=== PATIENT | female | born 1990 | race Caucasian/White ===

== ENCOUNTER 2018-07-14 01:42 | Inpatient (IN) | payer OTHER ==
[2018-07-14 02:18] VITALS: BMI 46.2
[2018-07-14 02:48] LABS: Amnisure Test No Membranes Rupture (No Rupture)
[2018-07-14 02:49] LABS: Amnisure Internal Control QC ACCEPTABLE (ACCEPTABLE)
--- NOTE | 2018-07-14 03:00 | PDOC.LDHP ---
Labor and Delivery H&P Chief complaint: loss of fluid HPI: Patient of Dr Walsh Locatio: Triage Time: 0300 HPI: 27 yo G1 at 37 weeks 5 days with posible LOF at 0030. Good FM, no fever, no VB. HX Maternal tachycardia on metoprolol. Review of systems: complete ROS performed and as per HPI Current gestational age (weeks): 37 (5 days) Dating criteria: last menstrual period Grav: 1 Para: 0 Current complications: other (maternal tachycardia) Abnormal US findings: No Current medications: pre-varun vitamins, other (metoprolol) Previous surgical history: none Allergies/Adverse Reactions: Allergies Allergy/AdvReac Type Severity Reaction Status Date / Time No Known Drug Allergies Allergy Verified 07/14/18 02:08 - Physical Exam Vital signs reviewed and normal: yes (137/81 99 18) General: NAD Heart: RRR Lungs: CTAB Abdomen: gravid Extremeties: no edema FHT: category 1 - Assessment early term with complaint of possible LOF. Amnisure negative - Plan Plan: observation in L&D (Sterile spec to be performed by me now; negative. FHTs cat 1)
--- NOTE | 2018-07-14 03:23 | PDOC.EVN ---
Event Note - Event Note Event Note: Sterile Spec exam negative. Valsalva negative. This with neg rules out ROM. Yeast in vagina noted...will order Diflucan X 1 oral BP was 145/89 while I was talking with her...I will do BP obs and order labs. PIH information given to her...obs for BP for 3 hours. CX closed/thich/high and posterior. Cat 1 strip
--- NOTE | 2018-07-14 03:35 | PDOC.EVN ---
Event Note - Event Note Event Note: Brother with malignant hypertermia with tonsilectomy...will relay to anesthesia if labors.
[2018-07-14] MEDS ORDERED: Fluconazole 100 MG TAB PO SCH (03:45)
[2018-07-14 04:03] LABS: Mean Corpuscular HGB CONC 35.2 g/dL (32.0-36.0); Mean Corpuscular Hemoglobin 29.8 pg (27.0-31.0); Mean Corpuscular Volume 84.5 fL (78.0-98.0); Mean Platelet Volume 8.9 fL (7.4-10.4); Platelet Count 224 thou/uL (130-400); RBC Distribution Width 12.2 % (11.5-14.5); Red Blood Cell (RBC) Count 4.02 mill/uL (4.20-5.40); White Blood Cell (WBC) Count 11.3 thou/uL (4.8-10.8)
[2018-07-14 04:24] LABS: ALT (SGPT) 17 U/L (8-55); AST (SGOT) 14 U/L (5-34); Albumin 3.1 g/dL (3.5-5.0); Alkaline Phosphatase 152 U/L (40-150); Anion Gap 15 mmol/L (10-20); BUN (Urea Nitrogen) 10 mg/dL (7.0-18.7); Bilirubin, Total 0.2 mg/dL (0.2-1.2); Calc. Creatinine Clearance 255 mL/min (70-130); Calcium 9.5 mg/dL (7.8-10.44); Carbon Dioxide 19 mmol/L (22-29); Chloride 109 mmol/L (98-107); Estimated GFR-MDRD Greater than 90; Globulin 2.9 g/dL (2.4-3.5); Glucose 98 mg/dL (70-105); Potassium 4.1 mmol/L (3.5-5.1); Sodium 139 mmol/L (136-145)
--- NOTE | 2018-07-14 04:36 | PDOC.EVN ---
Event Note - Event Note Event Note: cbc and cmp ok, urine protein pending
[2018-07-14] MEDS ORDERED: Ondansetron ODT 4 MG TAB PO PRN (04:41)
--- NOTE | 2018-07-14 05:34 | PDOC.EVN ---
Event Note - Event Note Event Note: protein neg
--- NOTE | 2018-07-14 05:39 | PDOC.EVN ---
Event Note - Event Note Event Note: Patient with no PIH sxs...BPs borderline. States she was to have a sono this Thursday...we will order here.
[2018-07-14] MEDS ORDERED: NS / Oxytocin 40 units/1000ml 1,000 ML IV PRN (07:11)
[2018-07-14] MEDS ORDERED: Ibuprofen 800 MG TAB PO PRN (07:11)
[2018-07-14] MEDS ORDERED: HYDROcodone/Acetaminophen 5/325 mg Tablet PO PRN ×2 (07:11)
[2018-07-14] MEDS ORDERED: Lidocaine 1% (PF) 30 ML VIAL SC PRN (07:11)
[2018-07-14] MEDS ORDERED: Promethazine HCl 25 MG/ML VIAL IM PRN (07:11)
--- NOTE | 2018-07-14 07:11 | PDOC.EVN ---
Event Note - Event Note Event Note: Sono with EFW 4102grams, JESUS 14, ceplaic, post placenta. Due to persiustent borderline BOPs at 140s..we will keep for cytotec
[2018-07-14] MEDS ORDERED: Misoprostol 100 MCG TAB VAG SCH (07:15)
[2018-07-14] MEDS: Lactated Ringer's 1,000 ML IV SCH ×3 (08:15→23:50)
[2018-07-14 08:26] LABS: Syphilis Antibody Nonreactive (Nonreactive); Syphilis Antibody Index 0.05 S/CO (<1.00 Non-Reactive)
[2018-07-14 08:27] LABS: HIV (1/2) Antibody/Antigen Non-Reactive (NonReactive); HIV 1/2 INDEX 0.09 S/CO (<1.00); Hep B Surf Ag Non-Reactive S/CO (NonReactive)
--- NOTE | 2018-07-14 08:28 | PDOC.EVN ---
Event Note - Event Note Event Note: Received report from Dr. Bear. of Dr. Walsh here with elevated BPs, normal labs, unfavorable cervix and EFW of 4100 gms. Dispo for delivery. Cytotec ordered.
--- NOTE | 2018-07-14 09:32 | ULT ---
EXAM: LIMITED OB ULTRASOUND: History: 27-year-old female with induced hypertension. Exam was performed to particularly evaluate amniotic fluid as well as position. FINDINGS: Single viable intrauterine fetus is noted in cephalic presentation. The placenta is posterior. heart rate of 169 beats/minute. Amniotic fluid index 14.3 cm. anatomy was not addressed at the time of this study. BDP 10.2 cm 42 weeks 0 days HC 35.1 cm 40 weeks 6 days AC 36.2 cm 40 weeks 1 day FL 7.9 cm 40 weeks 1 day IMPRESSION: Single viable intrauterine fetus at 40 weeks 4 days gestation with an EDC of 12-22-18. Estimated feta l weight 4102 grams. IMPRESSION: 40 weeks 4 day gestation with an EDC of 12-22-18. Estimated weight 4102 grams. Cephalic present ation. Amniotic fluid index of 14.3 cm. POS: [facility]
[2018-07-14] MEDS: Misoprostol 100 MCG TAB VAG SCH ×4 (09:48→18:13)
[2018-07-14] MEDS ORDERED: Bupivacaine/Epinephrine 0.25% 30 ML VIAL ONE (15:00)
[2018-07-14] MEDS ORDERED: Lidocaine 2% MPF 10 ML AMP (For Epidural Use) ONE (15:00)
--- NOTE | 2018-07-14 16:05 | PDOC.EVN ---
Event Note - Event Note Event Note: Comfortable. 2 doses of vaginal Cytotec given so far. SVE by me now -/-3, vtx high. Fhts stable. UCs q 2-3 seen now. Will defer dose for now and observe.
[2018-07-14] MEDS ORDERED: NS w/ Oxytocin 10 units 500 ML ONE (22:22)
--- NOTE | 2018-07-14 22:43 | PDOC.EVN ---
Event Note - Event Note Event Note: 3 doses of Cytotec given. SROM at 1940, clear. SVE now /-2, vtx. FHTs stable. UCs irregular. Plan: Start pitocin.
[2018-07-15] MEDS: Butorphanol Tartrate 1 MG/ML VIAL SLOW IVP PRN ×2 (00:15→03:20)
[2018-07-15] MEDS: Misoprostol 100 MCG TAB VAG SCH ×4 (00:59→13:44)
[2018-07-15] MEDS ORDERED: NS w/ Oxytocin 10 units 500 ML IV SCH (01:15)
--- NOTE | 2018-07-15 03:50 | PDOC.EVN ---
Event Note - Event Note Event Note: SVE at 0230 was 4/90/-2. FHTs stable, no decels. UCs q 2-3 mins. Pit at 10 mu/min. Cont. pitocin induction.
[2018-07-15] MEDS: Lactated Ringer's 1,000 ML IV SCH ×4 (08:29→19:10)
[2018-07-15] MEDS ORDERED: Fentanyl 4 mcg/Bup 0.1% Cadd 100 ML ONE ×2 (09:02→18:13)
[2018-07-15] MEDS ORDERED: Naloxone HCl 0.4 mg/ml Vial IVP PRN ×4 (09:48→22:20)
[2018-07-15] MEDS ORDERED: Lactated Ringer's 500 ML IV PRN (09:48)
[2018-07-15] MEDS ORDERED: Eucerin (Mineral Oil/Petrolatum,White) 30 gm Jar TOP PRN ×2 (09:48→22:20)
[2018-07-15] MEDS ORDERED: Promethazine HCl 25 MG/ML VIAL IM PRN ×2 (09:48→22:20)
[2018-07-15] MEDS ORDERED: Acetaminophen 325 MG TAB PO PRN (09:48)
[2018-07-15] MEDS ORDERED: Ondansetron PF 4 MG/2 ML Vial IVP PRN ×2 (09:48→22:20)
[2018-07-15] MEDS ORDERED: ePHEDrine/0.9% NaCl/PF SYRINGE 50 mg/10 ml SLOW IVP PRN (09:48)
[2018-07-15] MEDS ORDERED: diphenhydrAMINE 50 MG/ML VIAL IVP PRN ×2 (09:48→22:20)
[2018-07-15] MEDS ORDERED: Communication Order-Pharmacy FS SCH ×2 (10:00→22:30)
[2018-07-15] MEDS ORDERED: Fentanyl 4 mcg/Bupivacaine 0.1% Cassette 100 ML EPIDURAL SCH (10:00)
[2018-07-15] MEDS: Dextrose 5%-Lactated Ringers 1,000 ML IV SCH (13:45)
[2018-07-15] MEDS ORDERED: Bicitra 30 ML UDCUP ONE (18:40)
[2018-07-15] MEDS ORDERED: CEFAZOLIN 2 GM/50 ML BAG ONE (18:40)
[2018-07-15] MEDS ORDERED: Bicitra 30 ML UDCUP PO SCH (19:15)
[2018-07-15] MEDS ORDERED: CEFAZOLIN 2 GM/50 ML BAG IVPB SCH (19:15)
[2018-07-15] MEDS ORDERED: Ketorolac Tromethamine 30 MG/ML VIAL ONE (19:29)
[2018-07-15] MEDS ORDERED: Oxytocin 10 UNITS/ML VIAL ONE (19:29)
[2018-07-15] MEDS ORDERED: Ondansetron PF 4 MG/2 ML Vial ONE (19:29)
[2018-07-15] MEDS ORDERED: ePHEDrine/0.9% NaCl/PF SYRINGE 50 mg/10 ml ONE (19:29)
[2018-07-15] MEDS ORDERED: PHENYLEPHRINE-NS 100 MCG/ML 10 ML SYRINGE ONE (19:29)
[2018-07-15] MEDS ORDERED: Fentanyl 100 MCG/2 ML VIAL ONE ×2 (19:38→20:35)
[2018-07-15] MEDS ORDERED: Lidocaine 2% MPF 10 ML AMP (For Epidural Use) ONE (20:00)
--- NOTE | 2018-07-15 20:34 | PRG ---
DATE OF SERVICE: 07/15/2018 INTRAPARTUM PROGRESS NOTE SUBJECTIVE: The patient is a 27-year-old, G1, P0 female with an intrauterine at 37 weeks and 6 days, who was admitted yesterday for PIH. Over the course of her induction, the patient has had 3 doses of Cytotec and was placed on Pitocin this morning. There has been some concern that the patient has an LGA baby. Over the course of the days, the patient has had Pitocin with periods of adequate contractions. Earlier in the day, there was some concern about the patient having increasing baseline in her tocometer as we were unable to clearly identify where it was coming from. Decision was made to turn off her Pitocin to see the results of the baseline did drop a small amount, that does not appear to be the result of hypertonic uterus. Pitocin was restarted until uterine contractions became adequate again, however, over the course of the entire day, the patient has not had any change in her cervix or in her station. Cervix remains to be 3 to 4 cm as of yesterday evening, 80% to 90% effaced with -2 station. We did share these findings with the patient, Ms. Carey and concerns that the patient has a baby too large to pass at the bony pelvis. We gave her the option of continuing forward for a couple of hours to see if persistent out of contractions to make any change or to proceed with given the prolonged state of induction at this point. After discussing with her family, the patient has decided to proceed with . The patient has a family history of malignant hyperthermia, i.e. her brother and had concerns about the risk of general anesthesia. The patient does have an adequate epidural anesthesia has been made aware of the family history, and precautions have been made. Blood pressures throughout the day have been primarily in the normal to mild range. She has had some isolated severe pressure at 160/90. Most recent vital signs; blood pressure is 122/79, heart rate of 102, respiratory rate of 18, and temperature 99.1. Fetus has remained category 1 tracing throughout the day with a baseline in the 130s with moderate long-term variability, positive 15 x 15 accelerations, no decelerations. Given the prolonged course of labor and long use of Pitocin, we have rested the patient for several hours to help get the uterus time to recuperate and hopefully minimize the chance of atony and excessive bleeding. As anesthesia has an opening to proceed forward for , we will be proceeding at this time. Job ID: [id number]
[2018-07-15] MEDS ORDERED: PROPOFOL 20 ML ONE ×2 (20:35→20:51)
[2018-07-15] MEDS ORDERED: Morphine PF 1 MG/ML SYR ONE (21:26)
--- NOTE | 2018-07-15 21:47 | PDOC.OPDEL ---
OB Operative/Delivery Note Delivery Dr/Surgeon: Mona Mendes-[id number] Pre-Delivery Diagnosis: arrest of dilation Procedure/Post Delivery Dx: primary low transverse CS Weeks gestation: 37 (6 days) Anesthesia: epidural - Findings A Sex: male - 1 min: 7 - 5 min: 9 - Additional Findings/Plan Placenta delivered: manual removal Compilations/Other Findings: Procedure: Primary low transverse caesarean section Pre-Op Diagnosis: 1. Term Intrauterine 2. Arrest of Labor 3. Elevated BP Post-Op Diagnosis: 1. Term Intrauterine , Delivered 2. Same as above. Anesthesia: Epidural Indication: The patients is a 27 yo female @ 37.6 wks gestation who presents for primary due to arrest of labor. Procedure: After risks, benefits and alternatives were explained to the patient she gave informed consent. Pre-op antibiotics included Cefazolin 2g IV. Pt already had epidural anesthesia initiated. Pt was taken back to to the operating room. She was then placed in the supine position with a left lateral tilt. Patient was then prepped and dressed in the usual fashion. A Pfannenstiel incision was made with a scalpel and bovie down to the fascia. Bleeding was stopped with bovie cautery. The fascia was then sharply nicked. The fascial cut was then extended bilaterally with curved Hernadez scissors. The superior edge of the dissected fascia was then elevated with claudia clamps and the rectus muscles were sharply and bluntly dissected away. The inferior edge of the dissected fascia was then elevated and rectus muscles were again sharply and bluntly dissected away. The peritoneum was then entered using a hemastat and making small meño with metzenbaum scissors. The recti were then divided digitally and retracted manually. Small cuts were made to the rectus muscles bilaterally horizontally with curved hernadez scissors to help retract muscle and peritoneum from view of uterus. An adalberto O-retractor was then inserted. A low transverse score was then made with a scalpel and uterus was entered in midline. Clear fluid was noted. The hysterotomy was then extended manually and with bandage scissors. The infant was noted to be vertex and was easily delivered with fundal pressure. Mouth and nares were bulb suctioned. Cord was clamped and cut after 1 min of delay. Infant was then handed to waiting nurse. Cord blood was obtained. Placenta was then manually extracted and was noted to be intact with 3 vessel cord. The endometrium was then curretted with a dry lap. The uterus was then closed with a running locking 1-Monocryl suture followed by a running non-locking 1-monocryl imbricating suture. The uterus was irrigated and found to be free of clots. Hemostasis was noted. The Adalberto-O retractor was then removed and again hemostasis was noted along the hystertotomy. The peritoneum was then closed with a running non-locking 2- chromic suture. The fascia was then closed with a running non-locking 0- Vicryl suture. The subcutaneous layer was irrigated and again hemostasis was noted. The subcutaneous layer was then closed with 3 interupted 3-chromic suture. The skin was then approximated with gerardo. Was dressed with silvercell and pressure dressing. All counts were correct. Pt tolerated the procedure well and was taken to the recovery room in stable condition. QBL: 985 ml Complications: None Specimens: Cord blood sent to lab for blood type Findings: Nomal Male infant with apgars of 7,9. Grossly normal placenta with 3 vessel cord discarded. Drains: Kelley to gravity draining clear urine. Post delivery plan: recovery in LICU
[2018-07-15] MEDS ORDERED: Meperidine HCl/PF 25 MG/ML VIAL ONE (22:11)
[2018-07-15] MEDS ORDERED: Promethazine HCl 25 MG SUPP PR PRN (22:20)
[2018-07-15] MEDS ORDERED: Naloxone HCl 0.4 mg/ml Vial IV PRN (22:20)
[2018-07-15] MEDS ORDERED: HYDROmorphone 2 MG/ML VIAL SLOW IVP PRN (22:20)
[2018-07-15] MEDS ORDERED: Meperidine HCl/PF 25 MG/ML VIAL SLOW IVP PRN (22:20)
[2018-07-15] MEDS ORDERED: Ketorolac Tromethamine 30 MG/ML VIAL IVP PRN (22:20)
[2018-07-15] MEDS ORDERED: Ondansetron HCl/PF 4 MG/2 ML Vial IVP PRN (22:20)
[2018-07-15] MEDS ORDERED: L&D-Morphine 4 MG/ML VIAL SLOW IVP PRN (22:20)
[2018-07-15] MEDS ORDERED: Ketorolac Tromethamine 30 MG/ML VIAL IVP SCH (22:30)
[2018-07-15] MEDS ORDERED: Morphine 4 MG/ML VIAL ONE (23:39)
[2018-07-16] MEDS ORDERED: Methylergonovine 0.2 MG TAB PO PRN (00:59)
[2018-07-16] MEDS ORDERED: diphenhydrAMINE 25 MG CAP PO PRN (00:59)
[2018-07-16] MEDS ORDERED: Methylergonovine 0.2 MG/ML VIAL IM PRN (00:59)
[2018-07-16] MEDS ORDERED: Lanolin Ointment 7 GM TUBE TOP PRN (00:59)
[2018-07-16] MEDS ORDERED: Adacel (T-DAP) 0.5 ML SYRINGE IM ONE (00:59)
[2018-07-16] MEDS ORDERED: Misoprostol 200 MCG TAB PR PRN (00:59)
--- NOTE | 2018-07-16 07:09 | PDOC.PP ---
Post Progress Note Post Day #: 1 Subjective: This is a 27 yo female who delivered a TAGA M via Primary @ 37.6 weeks. Pt reports doing well. Pt has gotten up and walked to the bathroom. Reports getting a little dizzy. Denies any headache or vision changes. Pt reports drinking fluids, has not taken any solid food. Pt denies any fever or chills. Denies any chest pain or SOB. Reports pain being very manageable at this time. Denies any n/v/d/c. Has not passed gas yet. Pt reports minimal bleeding this morning. No acute events overnight. No other concerns at this time. PO intake tolerated: yes Flatus: no Ambulation: yes Vital Signs (12 hours) Temp Pulse Resp BP Pulse Ox 07/16/18 03:45 98.5 F 95 20 132/79 95 07/16/18 02:45 98.1 F 109 H 18 126/75 98 07/16/18 01:45 98.1 F 94 18 128/69 97 Weight Weight 118.388 kg - Physical Examination General: NAD Cardiovascular: no m/r/g, RRR Respiratory: clear to auscultation bilaterally, non-labored breathing Abdominal: + bowel sounds, lochia (Reports light at this time), no distention, appropriately TTP Fundus firm & at: Umbilicus Extremities: negative homans (B) Deviation from normal: Has trace edema bilaterally Skin: CS incision dry & intact, no rash Deviation from normal: No bruising or redness. No sign of drainage. Neurological: no gross focal deficits Psychiatric: A&Ox3, normal affect Result Diagrams: 07/16/18 09:13 07/14/18 03:55 Additional Labs: Post Labs Blood Type A POSITIVE 07/14/18 03:55 Hep Bs Antigen Non-Reactive S/CO (NonReactive) 07/14/18 03:55 (1) Status: Resolved Qualifiers: Weeks of gestation: 37 weeks Qualified Code(s): Z3A.37 - 37 weeks gestation of - Assessment/Plan 27 yo delivered via primary LTCS on 07/15/18 @ 20:42. -Post Op Day 1 -Ketorolac IV and Tylenol for pain at this time. Will adjust if needed. Pt reports good control at this time. -Hgb Pending this AM, on PNV at this time. -Continue to advance diet as tolerated -- Site Worker consulted Elevated BP -Pt has had some elevated BP during admission. -BP stable overnight. Will continue to monitor. Will tx if needed Addendum - Attending - Attending Attestation Date/Time: 07/19/182054 I personally evaluated the patient and discussed the management with I agree with the History, Examination, Assessment and Plan documented above with any addition or exceptions noted below.
[2018-07-16] MEDS: Prenatal Vitamin 1 TAB PO SCH (09:04)
[2018-07-16] MEDS: Simethicone Chewable 80 MG TAB PO PRN ×3 (09:04→23:38)
[2018-07-16 09:29] LABS: Hemoglobin 10.3 g/dL (12.0-16.0); Mean Corpuscular HGB CONC 34.5 g/dL (32.0-36.0); Mean Corpuscular Hemoglobin 29.6 pg (27.0-31.0); Mean Corpuscular Volume 85.6 fL (78.0-98.0); Mean Platelet Volume 8.8 fL (7.4-10.4); Platelet Count 170 thou/uL (130-400); RBC Distribution Width 12.1 % (11.5-14.5); Red Blood Cell (RBC) Count 3.47 mill/uL (4.20-5.40); White Blood Cell (WBC) Count 11.6 thou/uL (4.8-10.8)
[2018-07-16] MEDS ORDERED: Acetaminophen 500 MG TAB PO SCH (09:30)
[2018-07-16] MEDS: Ibuprofen 800 MG TAB PO SCH ×2 (13:42→23:38)
[2018-07-16] MEDS ORDERED: HYDROcodone/Acetaminophen 5/325 mg Tablet PO PRN (17:08)
[2018-07-16] MEDS: HYDROcodone/Acetaminophen 5/325 mg Tablet PO PRN ×2 (17:13→21:17)
[2018-07-16] MEDS ORDERED: Furosemide 20 MG TAB PO SCH (21:15)
--- NOTE | 2018-07-16 21:34 | PDOC.PP ---
Post Progress Note Post Day #: 1 Subjective: Doing well, ambulated today...states feet still swollen. PO intake tolerated: yes Flatus: yes Ambulation: yes Vital Signs (12 hours) Temp Pulse Resp BP BP Pulse Ox 07/16/18 17:05 98.4 F 113 H 16 140/75 97 07/16/18 11:49 98.1 F 88 20 124/64 Weight Weight 261 lb Last BP this evening was 140/75...others were normal; afebrile - Physical Examination Cardiovascular: no m/r/g Respiratory: clear to auscultation bilaterally Abdominal: + bowel sounds, lochia, no distention, appropriately TTP Extremities: negative homans (B) Skin: CS incision dry & intact (gerardo in use) Neurological: no gross focal deficits Psychiatric: A&Ox3, normal affect Result Diagrams: 07/16/18 09:13 07/14/18 03:55 Additional Labs: Post Labs Blood Type A POSITIVE 07/14/18 03:55 Hep Bs Antigen Non-Reactive S/CO (NonReactive) 07/14/18 03:55 (1) delivery delivered Code(s): O82 - ENCOUNTER FOR DELIVERY WITHOUT INDICATION Status: Acute (2) PIH ( induced hypertension) Code(s): O13.9 - GESTATIONAL HTN W/O SIGNIFICANT PROTEINURIA, UNSP TRIMESTER Status: Acute - Assessment/Plan S/P Primary CS on 07/15/18 doing well. CS was for FTP..baby was over 8#. She is . I ordered lasix 10mg po X 1 now to help with her pedal edema (2+) . No PIH sxs. I also emcouraged ambulation. We will keep and follow BPs until POD3 which will bw 07/18/18.
[2018-07-16] MEDS ORDERED: Ibuprofen 800 MG TAB PO SCH (22:00)
[2018-07-17] MEDS: HYDROcodone/Acetaminophen 5/325 mg Tablet PO PRN ×5 (02:35→21:04)
--- NOTE | 2018-07-17 05:38 | PDOC.PP ---
Post Progress Note Post Day #: 2 Subjective: Doing well, receieved lasix last PM for swollen feet PO intake tolerated: yes Flatus: yes Ambulation: yes Vital Signs (12 hours) Temp Pulse Resp BP Pulse Ox 07/16/18 20:00 98.4 F 101 H 18 132/82 99 Weight Weight 261 lb - Physical Examination General: NAD Cardiovascular: no m/r/g Respiratory: clear to auscultation bilaterally Abdominal: + bowel sounds Extremities: negative homans (B) Skin: CS incision dry & intact (gerardo) Neurological: no gross focal deficits Psychiatric: A&Ox3, normal affect Result Diagrams: 07/16/18 09:13 07/14/18 03:55 Additional Labs: Post Labs Blood Type A POSITIVE 07/14/18 03:55 Hep Bs Antigen Non-Reactive S/CO (NonReactive) 07/14/18 03:55 (1) delivery delivered Code(s): O82 - ENCOUNTER FOR DELIVERY WITHOUT INDICATION Status: Acute (2) PIH ( induced hypertension) Code(s): O13.9 - GESTATIONAL HTN W/O SIGNIFICANT PROTEINURIA, UNSP TRIMESTER Status: Acute - Assessment/Plan Doing well on POD 2: We will keep today and follow temps as labored and then had intrapartum CS. BPs ok with one systolic BP last evening that was 140s...subsequent BP ok S/P lasix po X 1 for pedal edema
[2018-07-17] MEDS: Ibuprofen 800 MG TAB PO SCH ×3 (06:39→21:32)
[2018-07-17] MEDS: Misoprostol 100 MCG TAB VAG SCH ×2 (08:04→08:05)
[2018-07-17] MEDS: Dextrose 5%-Lactated Ringers 1,000 ML IV SCH (08:05)
[2018-07-17] MEDS: Prenatal Vitamin 1 TAB PO SCH (08:49)
[2018-07-17] MEDS: Simethicone Chewable 80 MG TAB PO PRN (08:49)
[2018-07-18] MEDS: HYDROcodone/Acetaminophen 5/325 mg Tablet PO PRN (05:42)
[2018-07-18] MEDS: Ibuprofen 800 MG TAB PO SCH ×2 (05:43→14:13)
--- NOTE | 2018-07-18 07:26 | PDOC.PP ---
Post Progress Note Post Day #: 3 Subjective: Pt reports starting to feel the pain. Pt says medicine is helping. Pt denies any fever or chills. Denies any SOB or Chest pain. Pt reports getting up and walking around. Reports feeling some pain in incision. She is eating PO and tolerating. Denies any n/v/d/c. Pt has not had BM but reports passing gas. Denies any minimal bleeding. Pt reports getting mild sore throat overnight. Denies any nasal congestion or cough. PO intake tolerated: yes Flatus: yes Ambulation: yes Vital Signs (12 hours) Temp Pulse Resp BP Pulse Ox 07/17/18 20:00 98.3 F 78 19 133/80 99 Weight Weight 118.388 kg - Physical Examination General: NAD Deviation from normal: Throat clear, no redness or tonsillar swelling Cardiovascular: no m/r/g, RRR Respiratory: clear to auscultation bilaterally, non-labored breathing Abdominal: + bowel sounds, lochia (reports lochia as light at this time), no distention, appropriately TTP Fundus firm & at: below umbilicus Extremities: negative homans (B) Skin: CS incision dry & intact Deviation from normal: Dressing in place. No sign of redness or drainage. Neurological: no gross focal deficits Psychiatric: A&Ox3, normal affect Result Diagrams: 07/16/18 09:13 07/14/18 03:55 Additional Labs: Post Labs Blood Type A POSITIVE 07/14/18 03:55 Hep Bs Antigen Non-Reactive S/CO (NonReactive) 07/14/18 03:55 (1) Status: Resolved Qualifiers: Weeks of gestation: 37 weeks Qualified Code(s): Z3A.37 - 37 weeks gestation of (2) PIH ( induced hypertension) Code(s): O13.9 - GESTATIONAL HTN W/O SIGNIFICANT PROTEINURIA, UNSP TRIMESTER Status: Acute - Assessment/Plan 27 yo delivered On 07/15 via Primary LTCS. Post Op Day 3 -Pt vitals stable. -Pt reports having pain but medicine helping. Likely will need some [place] for home. =Pt has some trace edema. Lasix x1 yesterday. Much improved. Gestational HTN -BP stable. No elevated pressures over the last 24 hours. -will continue to monitor outpatient. Addendum - Attending - Attending Attestation Date/Time: 07/19/182058 I personally evaluated the patient and discussed the management with Dr. Dunn I agree with the History, Examination, Assessment and Plan documented above with any addition or exceptions noted below.
--- NOTE | 2018-07-18 08:21 | PDOC.EVN ---
Event Note - Event Note Event Note: Hot Repairman: Baby may get phototherapy for Bili...can hold DSCH for mom until AM tomorrow
[2018-07-18 09:10] VITALS: BP 139/67; TEMP 98.8
[2018-07-18] MEDS: Simethicone Chewable 80 MG TAB PO PRN (09:30)
[2018-07-18] MEDS: Prenatal Vitamin 1 TAB PO SCH (09:30)
--- NOTE | 2018-07-18 13:26 | PDOC.EVN ---
Event Note - Event Note Event Note: Discharge Note: Patient's baby cleared for discharge, we will discharge mom as well. Final Dx: Mild PIH section Delievered Admit date: 07/14/18 Discharge Date: 07/18/18 Discharge Sheet completed in the record I have reviewed the patient's vitals from this AM. Follow up as previously described for wound check
== END 2018-07-18 14:55 | disposition home or self-care (01) | DRG 788 ==
LOC: L&D/OP 01:42 → L&D 07:46 → 3SW 07-16 01:57
PROVIDERS: ADMIT Family Medicine; ATTEND Family Medicine
PROC: 10D00Z1 Extraction of Products of Conception, Low, Open Approach (ICD-10-PCS; principal; 2018-07-15)
PROC: 3E033VJ Introduction of Other Hormone into Peripheral Vein, Percutaneous Approach (ICD-10-PCS; 2018-07-15)
DX: O13.4 Gestational [pregnancy-induced] hypertension without significant proteinuria, complicating childbirth (principal); O36.63X0 Maternal care for excessive fetal growth, third trimester, not applicable or unspecified; Z3A.37 37 weeks gestation of pregnancy; Z37.0 Single live birth; O99.419 Diseases of the circulatory system complicating pregnancy, unspecified trimester; R00.0 Tachycardia, unspecified; Z79.899 Other long term (current) drug therapy; O62.1 Secondary uterine inertia
CPT/HCPCS: 36415; 51702; 76815; 80053; 82570; 84112; 84156; 85027; 86780; 86850; 86900; 86901; 87340; 87389; 99285; J0595; J1885; J2001; J2175; J2210; J2270; J2274; J2405; J2590; J2704; J3010; Q0162